=== PATIENT | male | born 1990 | race African-American/Black ===

== ENCOUNTER 2021-10-27 12:34 | Emergency (ER) | payer MEDICAID ==
[2021-10-27] MEDS ORDERED: LIDOCAINE 1% 2 ML VIAL MC ONE (12:43)
[2021-10-27] MEDS ORDERED: cefTRIAXone 1 GM VIAL IM STA (12:43)
[2021-10-27] MEDS ORDERED: PENICILLIN G BENZATHINE 600,000 UNIT/ML SYRINGE IM STA (12:43)
--- NOTE | 2021-10-27 12:46 | ED Physician Documentation ---
History of Present Illness - Stated complaint Stated Complaint: MALE - History obtained from History obtained from: Patient - Additonal information Additional information: 31-year-old homosexual male recently moved from [place]. He was notified by health department there that a partner he was with in June may have exposed him to either gonorrhea or syphilis. He denies rectal pain, penile lesions. He did have a rash on the bottom of his feet that has since resolved. He has not been with this partner for about 4 months. He does have a mild sore throat. He has a history of HIV and is on [facility]. Review of Systems Constitutional: denies: Fever, Chills Nose: reports: Reviewed and negative Cardiac: reports: Reviewed and negative PD PAST MEDICAL HISTORY - Present Medications Home Medications: Ambulatory Orders Medication Instructions Recorded Confirmed Doxycycline Hyclate 100 mg PO BID #14 tab.sr 10/27/21 - Allergies Allergies/Adverse Reactions: Allergies Allergy/AdvReac Type Severity Reaction Status Date / Time latex Allergy Unknown Verified 10/27/21 12:48 PD ED PE NORMAL - Vitals Vital signs reviewed: Yes - General General: Alert and oriented X 3, No acute distress - HEENT HEENT: Other (Visualized portions of the oropharynx appear normal.) - Derm Derm: No rash - Neuro Neuro: Alert and oriented X 3, Normal speech Results - Vitals Vitals: Vital Signs - 24 hr 10/27/21 10/27/21 12:42 13:33 Temperature 37.1 C Heart Rate 67 75 Respiratory 14 18 Rate Blood Pressure 173/118 H 135/70 H O2 Saturation 100 99 Oxygen O2 Source Room air PD MEDICAL DECISION MAKING - ED course ED course: 31-year-old gentleman with exposure to syphilis versus gonorrhea. He is treated here with 1 g of IM ceftriaxone since he may have pharyngeal gonorrhea. Also a weeks worth of doxycycline. He will be tested for syphilis but treated with an initial dose of 2,400,000 units of penicillin. 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 Departure - Departure Disposition: 01 Home, Self Care Clinical Impression: STD exposure Condition: Good Record reviewed to determine appropriate education?: Yes Instructions: ED STD Male Treated Prescriptions: Doxycycline Hyclate 100 mg PO BID #14 tab.sr Comments: You are fully treated for gonorrhea here with the shot you got. For the concern for syphilis, if you do have syphilis, this is concerning for what is known as latent syphilis and requires repeat dosing of penicillin in 1 week and again in 2 weeks. Return in 1 week for evaluation of lab work to evaluate the necessity of further treatment. Return if worse. Discharge Date/Time: 10/27/21 13:37
[2021-10-27 13:35] VITALS: BP 135/70
== END 2021-10-27 13:37 | disposition home or self-care (01) ==
LOC: ED 12:34
DX: Z20.2 Contact with and (suspected) exposure to infections with a predominantly sexual mode of transmission (principal)
CPT/HCPCS: 36415; 81599; 86780; 87491; 87591; 87661; 96372; 99282; 99283